=== PATIENT | female | born 1935 | race African-American/Black ===

== ENCOUNTER 2017-07-19 | Emergency (ER) | payer OTHER ==
[~2017-07-19] VITALS: Ht 175.3 cm; Wt 75.0 kg
[2017-07-19] MEDS ORDERED: ONDANSETRON 4MG ODT PO ONE (01:00)
[2017-07-19 01:01] VITALS: BP 147/77
== END 2017-07-19 01:16 | disposition home or self-care (01) ==
LOC: ER
DX: T50.905A Adverse effect of unspecified drugs, medicaments and biological substances, initial encounter (principal); Y92.9 Unspecified place or not applicable; S63.104A Unspecified dislocation of right thumb, initial encounter; E11.9 Type 2 diabetes mellitus without complications; I10 Essential (primary) hypertension; Z88.0 Allergy status to penicillin
CPT/HCPCS: 99283; Q0162

== ENCOUNTER 2019-10-21 16:06 | Emergency (ER) | payer OTHER ==
[~2019-10-21] VITALS: Ht 172.7 cm; Wt 74.0 kg
[2019-10-21 16:36] LABS: BASOPHILS % 0.7 % (0.0-2.0); EOSINOPHILS % 0.6 % (0.0-5.0); HEMOGLOBIN. 12.9 g/dL (12.0-16.0); LYMPHOCYTES % 21.2 % (20.0-50.0); MEAN CORPUSCULAR HEMOGLOBIN 29.4 pg (28.0-32.0); MEAN CORPUSCULAR VOLUME 88.9 fL (81.0-99.0); MEAN PLATELET VOLUME 9.1 fl (7.4-10.4); MONOCYTES % 9.7 % (2.0-8.0); NEUTROPHILS % 67.8 % (40.0-76.0); PLATELET 198 x1000/uL (130-400); RED BLOOD CELL COUNT 4.38 mill/uL (4.2-5.4); RED CELL DISTRIBUTION WIDTH 15.6 % (11.6-14.6)
[2019-10-21 16:37] LABS: CHLORIDE 102 mEq/L (98-107)
[2019-10-21 16:42] LABS: ETHANOL BLOOD < 10 mg/dL
[2019-10-21 16:45] LABS: LDL CHOLESTEROL 76 mg/dL (5-100)
[2019-10-21 16:46] LABS: CREATINE KINASE 171 IU/L (26-192)
[2019-10-21 16:47] LABS: INR 1.1; PROTHROMBIN TIME 11.2 sec (9.6-11.0)
[2019-10-21] MEDS ORDERED: POTASSIUM CHLORIDE INJ 40 MEQ in DEXT 5% WATER 250 ML IV NR (17:30)
[2019-10-21 18:21] LABS: CLARITY URINE CLEAR (CLEAR); COLOR URINE YELLOW (YELLOW); KETONES URINE NEGATIVE (NEGATIVE); LEUKOCYTE ESTERASE URINE NEGATIVE (NEGATIVE); NITRITE URINE NEGATIVE (NEGATIVE); OCCULT BLOOD URINE TRACE (NEGATIVE); PROTEIN URINE NEGATIVE (NEGATIVE); UROBILINOGEN URINE 0.2 E.U./dL (0.2-1.0)
[2019-10-21 18:31] LABS: *AMPHETAMINES SCREEN URINE NEGATIVE (NEGATIVE); *BARBITURATES SCREEN URINE NEGATIVE (NEGATIVE); *BENZODIAZEPINES SCREEN URINE NEGATIVE (NEGATIVE); *COCAINE SCREEN URINE NEGATIVE (NEGATIVE); METHADONE URINE SCREEN NEGATIVE (NEGATIVE)
[2019-10-21 18:32] LABS: CANNABINOID URINE SCREEN NEGATIVE (NEGATIVE); OPIATES URINE SCREEN NEGATIVE (NEGATIVE); PHENCYCLIDINE URINE SCREEN NEGATIVE (NEGATIVE)
[2019-10-21 20:13] VITALS: BP 162/95
== END 2019-10-21 21:26 | disposition short-term general hospital (02) ==
LOC: ER 16:06 → CANBEDREQ 22:02
DX: G93.41 Metabolic encephalopathy (principal); E11.9 Type 2 diabetes mellitus without complications; I11.0 Hypertensive heart disease with heart failure; I50.9 Heart failure, unspecified; R41.82 Altered mental status, unspecified
CPT/HCPCS: 36415; 70450; 70496; 71045; 80053; 80305; 80320; 81003; 82550; 82962; 83690; 83721; 83880; 84484; 85025; 85610; 93005; 96365; 96366; 99285; J3480; J7060; G0480

== ENCOUNTER 2020-01-01 13:51 | Emergency (ER) | payer OTHER ==
[~2020-01-01] VITALS: Ht 165.1 cm; Wt 65.0 kg
[2020-01-01 19:35] VITALS: BP 146/92
== END 2020-01-01 19:48 | disposition home or self-care (01) ==
LOC: ER 13:51
DX: M25.561 Pain in right knee (principal); I11.0 Hypertensive heart disease with heart failure; I50.9 Heart failure, unspecified; J45.909 Unspecified asthma, uncomplicated; E11.9 Type 2 diabetes mellitus without complications; Z88.0 Allergy status to penicillin
CPT/HCPCS: 71045; 73560; 99285

== ENCOUNTER 2021-10-14 20:03 | Inpatient (IN) | payer OTHER ==
[~2021-10-14] VITALS: Ht 175.3 cm; Wt 72.1 kg
[2021-10-14] MEDS ORDERED: LEVOFLOXACIN 750MG PREMIX 150 ML IV ONE (20:30)
[2021-10-14] MEDS ORDERED: SODIUM CHLORIDE 0.9% 1000ML BAG (SEPSIS BOLUS) IV ONE (20:30)
[2021-10-14] MEDS ORDERED: ONDANSETRON HCL 4MG/2ML INJ IV ONE (20:45)
[2021-10-14] MEDS ORDERED: NOREPINEPHRINE 8 MG in DEXT 5% WATER 242 ML IV STA (21:03)
[2021-10-14] MEDS ORDERED: NOREPINEPHRINE 8MG/250ML PMX 250 ML IV ONE ×2 (21:19→23:45)
[2021-10-14 21:27] LABS: BG BASE EXCESS -2.7 mmol/L (-2.0-2.0); BG CARBOXYHEMOGLOBIN 0.3 % (0.5-1.5); BG FRACTION INSPIRED OXYGEN 32; BG HCO3 ACT 18.2 mmol/L (22.0-26.0); BG METHEMOGLOBIN 0.2 % (0.0-1.5); BG OXYHEMOGLOBIN 96.5 % (94.0-97.0); BG PCO2 21.5 mmHg (35.0-45.0); BG PH 7.546 (7.350-7.450); BG PO2 100.6 mmHg (75.0-100.0); BG SAMPLE SITE RIGHT RADIAL; BG TOTAL HEMOGLOBIN 10.9 g/dL (12.0-18.0); BG VENT MODE NASAL CANNULA
[2021-10-14 21:36] LABS: CHLORIDE 97 mEq/L (98-107)
[2021-10-14 21:39] LABS: BASOPHILS % 0.2 % (0.0-2.0); EOSINOPHILS % 0.1 % (0.0-5.0); HEMATOCRIT. 39.9 % (36.0-48.0); HEMOGLOBIN. 12.5 g/dL (12.0-16.0); LYMPHOCYTES % 8.1 % (20.0-50.0); MEAN CORPUSCULAR VOLUME 82.7 fL (81.0-99.0); MEAN PLATELET VOLUME 9.7 fl (7.4-10.4); MONOCYTES % 5.1 % (2.0-8.0); NEUTROPHILS % 86.5 % (40.0-76.0); PLATELET 155 x1000/uL (130-400); RED BLOOD CELL COUNT 4.82 mill/uL (4.2-5.4); RED CELL DISTRIBUTION WIDTH 17.9 % (11.6-14.6)
[2021-10-14] MEDS ORDERED: DOCUSATE SODIUM 100MG CAPSULE PO PRN (22:30)
[2021-10-14] MEDS ORDERED: HYDROCODONE/ACETAMINOPHEN 5/325MG TABLET PO PRN (22:30)
[2021-10-14] MEDS ORDERED: NALOXONE HCL 0.4MG/ML VIAL IV PRN (22:30)
[2021-10-14] MEDS ORDERED: MORPHINE SULFATE 2 MG/ML CPJ (NOT FOR IM USE) IV PRN (22:30)
[2021-10-14] MEDS ORDERED: DEXT 5%/0.45% NACL 1000ML 1,000 ML IV SCH (22:30)
[2021-10-14] MEDS ORDERED: IPRATROPIUM/ALBUTEROL 0.5-3(2.5)MG/3ML NEB NEB PRN (22:30)
[2021-10-14] MEDS ORDERED: CLONIDINE 0.1MG TABLET PO PRN (22:30)
[2021-10-14] MEDS ORDERED: MAGNESIUM/ALUMINUM HYDROXIDE/SIMETHICONE 30ML UDC PO PRN (22:30)
[2021-10-14] MEDS ORDERED: GUAIFENESIN 200MG/10ML SUGAR FREE UDC PO PRN (22:30)
[2021-10-14] MEDS ORDERED: ACETAMINOPHEN 325MG TABLET PO PRN (22:30)
[2021-10-14] MEDS ORDERED: DIPHENHYDRAMINE 50MG/ML VIAL IV PRN (22:30)
[2021-10-14] MEDS ORDERED: NA PHOS,M-B/NA PHOS,DI-BA ENEMA 118ML PR PRN (22:30)
[2021-10-14] MEDS ORDERED: LEVOFLOXACIN 500MG PREMIX 100 ML IV NR (23:00)
[2021-10-14 23:01] LABS: INR 1.4; PARTIAL THROMBOPLASTIN TIME 27.2 sec (23.4-31.0); PROTHROMBIN TIME 14.3 sec (9.6-11.0)
[2021-10-14] MEDS ORDERED: VANCOMYCIN 1500MG in DEXTROSE 5% WATER 250ML IV NR (23:30)
[2021-10-15] VITALS (54 sets, daily range): BP systolic 68–154; BP diastolic 19–97
[2021-10-15 04:30] LABS: CLARITY URINE CLEAR (CLEAR); COLOR URINE DARK YELLOW (YELLOW); KETONES URINE TRACE (NEGATIVE); LEUKOCYTE ESTERASE URINE NEGATIVE (NEGATIVE); NITRITE URINE NEGATIVE (NEGATIVE); OCCULT BLOOD URINE NEGATIVE (NEGATIVE); PROTEIN URINE 1+ (NEGATIVE); SPECIFIC GRAVITY URINE 1.016 (1.005-1.030)
[2021-10-15 05:37] LABS: BASOPHILS % 0.2 % (0.0-2.0); HEMATOCRIT. 28.8 % (36.0-48.0); HEMOGLOBIN. 9.3 g/dL (12.0-16.0); LYMPHOCYTES % 7.5 % (20.0-50.0); MEAN CORPUSCULAR HEMOGLOBIN 26.7 pg (28.0-32.0); MEAN CORPUSCULAR VOLUME 82.7 fL (81.0-99.0); MEAN PLATELET VOLUME 9.8 fl (7.4-10.4); MONOCYTES % 4.5 % (2.0-8.0); NEUTROPHILS % 87.8 % (40.0-76.0); PLATELET 136 x1000/uL (130-400); RED BLOOD CELL COUNT 3.48 mill/uL (4.2-5.4); RED CELL DISTRIBUTION WIDTH 17.6 % (11.6-14.6)
[2021-10-15 05:40] LABS: CHLORIDE 102 mEq/L (98-107)
[2021-10-15] MEDS: KCL 20MEQ/100ML X 2 FOR TOTAL KCL 40MEQ/200ML IV SCH ×2 (07:08→12:09)
[2021-10-15] MEDS: BLOOD SUGAR DIAGNOSTIC STRIP TEST SCH ×4 (07:12→21:14)
[2021-10-15] MEDS: INSULIN LISPRO 100 UNITS/ML SUBCUT SCH ×5 (07:17→21:18)
[2021-10-15] MEDS ORDERED: SODIUM CHLORIDE 0.9% 1,000 ML IV ONE (09:30)
[2021-10-15] MEDS ORDERED: DIATR MEGLU/DIATRIZOATE SOLN 30ML PO SCH (09:45)
[2021-10-15 10:19] LABS: BG BASE EXCESS -9.4 mmol/L (-2.0-2.0); BG CARBOXYHEMOGLOBIN 0.3 % (0.5-1.5); BG DEOXYHEMOGLOBIN 2.8 % (0.0-5.0); BG HCO3 ACT 12.6 mmol/L (22.0-26.0); BG METHEMOGLOBIN 0.2 % (0.0-1.5); BG OXYGEN SATURATION 97.2 % (92.0-98.5); BG OXYHEMOGLOBIN 96.7 % (94.0-97.0); BG PCO2 18.5 mmHg (35.0-45.0); BG PH 7.451 (7.350-7.450); BG PO2 105.2 mmHg (75.0-100.0); BG SAMPLE SITE RIGHT RADIAL; BG TOTAL HEMOGLOBIN 10.7 g/dL (12.0-18.0); BG VENT MODE NASAL CANNULA
[2021-10-15] MEDS ORDERED: SODIUM BICARBONATE 8.4% 1 MEQ/ML 50ML SYR IV NR (10:27)
[2021-10-15] MEDS: DEXT 5%/0.45% NACL KCL 40MEQ/L 1,000 ML IV SCH ×2 (12:09→21:15)
[2021-10-15 13:04] LABS: BG BASE EXCESS -2.6 mmol/L (-2.0-2.0); BG CARBOXYHEMOGLOBIN 0.3 % (0.5-1.5); BG METHEMOGLOBIN 0.2 % (0.0-1.5); BG OXYHEMOGLOBIN 97.5 % (94.0-97.0); BG PCO2 20.4 mmHg (35.0-45.0); BG PH 7.564 (7.350-7.450); BG PO2 113.8 mmHg (75.0-100.0); BG SAMPLE SITE LEFT FEMORAL; BG TOTAL HEMOGLOBIN 10.7 g/dL (12.0-18.0); BG VENT MODE NASAL CANNULA
[2021-10-15] MEDS: PANTOPRAZOLE SODIUM 40 MG/VIAL IV SCH (13:05)
[2021-10-15 13:10] LABS: BASOPHILS % 0.1 % (0.0-2.0); HEMATOCRIT. 30.3 % (36.0-48.0); HEMOGLOBIN. 9.8 g/dL (12.0-16.0); LYMPHOCYTES % 7.5 % (20.0-50.0); MEAN CORPUSCULAR HEMOGLOBIN 26.3 pg (28.0-32.0); MEAN CORPUSCULAR VOLUME 81.2 fL (81.0-99.0); MEAN PLATELET VOLUME 9.3 fl (7.4-10.4); MONOCYTES % 3.9 % (2.0-8.0); NEUTROPHILS % 88.5 % (40.0-76.0); PLATELET 103 x1000/uL (130-400); RED BLOOD CELL COUNT 3.74 mill/uL (4.2-5.4); RED CELL DISTRIBUTION WIDTH 17.6 % (11.6-14.6)
[2021-10-15 13:15] LABS: CHLORIDE 103 mEq/L (98-107)
[2021-10-15] MEDS ORDERED: MAGNESIUM 2 G PREMIX 50 ML IV SCH (14:00)
[2021-10-15] MEDS ORDERED: KCL 20MEQ/100ML PREMIX 100 ML IV SCH ×2 (15:00→17:00)
[2021-10-15] MEDS ORDERED: KCL 20MEQ/100ML PREMIX 100 ML IV NR (20:00)
[2021-10-15] MEDS: NOREPINEPHRINE 8 MG in DEXT 5% WATER 242 ML IV PRN (20:04)
[2021-10-15] MEDS: VANCOMYCIN 1G PREMIX 200 ML IV SCH (20:11)
[2021-10-15 23:52] LABS: HEMATOCRIT 32.4 % (36.0-48.0); HEMOGLOBIN 10.3 g/dL (12.0-16.0)
[2021-10-15] MEDS: LEVOFLOXACIN 250MG PREMIX 50 ML IV SCH (23:59)
[2021-10-16] VITALS (101 sets, daily range): BP systolic 53–189; BP diastolic 18–147
[2021-10-16 05:59] LABS: CHLORIDE 105 mEq/L (98-107)
[2021-10-16 06:00] LABS: HEMATOCRIT. 27.9 % (36.0-48.0); HEMOGLOBIN. 9.2 g/dL (12.0-16.0); MEAN CORPUSCULAR HEMOGLOBIN 26.8 pg (28.0-32.0); MEAN CORPUSCULAR VOLUME 81.4 fL (81.0-99.0); MEAN PLATELET VOLUME 10.1 fl (7.4-10.4); PLATELET 110 x1000/uL (130-400); RED BLOOD CELL COUNT 3.42 mill/uL (4.2-5.4); RED CELL DISTRIBUTION WIDTH 17.7 % (11.6-14.6)
[2021-10-16 06:23] LABS: PHOSPHORUS 0.3 mg/dL (2.5-4.9)
[2021-10-16] MEDS: BLOOD SUGAR DIAGNOSTIC STRIP TEST SCH ×4 (06:50→21:00)
[2021-10-16] MEDS: DEXT 5%/0.45% NACL KCL 40MEQ/L 1,000 ML IV SCH (06:52)
[2021-10-16] MEDS: INSULIN LISPRO 100 UNITS/ML SUBCUT SCH ×4 (06:55→21:00)
[2021-10-16] MEDS: DEXT 5%/0.45% NACL 1000ML 1,000 ML IV SCH ×2 (08:01→23:30)
[2021-10-16] MEDS ORDERED: POTASSIUM PHOS,M-BASIC-D-BASIC 30 MMOL in DEXT 5% WATER 500 ML IV ONE (08:30)
[2021-10-16 09:29] LABS: NUCLEATED RED BLOOD CELLS 2 /100 WBC
[2021-10-16 09:30] LABS: PLATELET ESTIMATE SLIGHTLY DECREASED
[2021-10-16] MEDS: PANTOPRAZOLE SODIUM 40 MG/VIAL IV SCH (09:43)
[2021-10-16] MEDS: CITRIC ACID/SODIUM CITRATE SOLN 15ML UDC PO SCH ×3 (11:16→17:06)
[2021-10-16 14:20] LABS: TOTAL IRON BINDING CAPACITY 131 ug/dL (250-450)
[2021-10-16 14:47] LABS: FOLIC ACID (FOLATE) SERUM 1.7 ng/mL (>5.38)
[2021-10-16 17:38] LABS: HEMATOCRIT 23.3 % (36.0-48.0); HEMOGLOBIN 7.6 g/dL (12.0-16.0)
[2021-10-16 21:09] LABS: HEPATITIS B SURFACE ANTIGEN NEGATIVE
[2021-10-16] MEDS: DEXTROSE 50% WATER 50ML SYRINGE IV PRN (21:51)
[2021-10-16] MEDS: VANCOMYCIN 1G PREMIX 200 ML IV SCH (22:14)
[2021-10-16 23:47] LABS: HEMATOCRIT 24.8 % (36.0-48.0); HEMOGLOBIN 8.4 g/dL (12.0-16.0)
[2021-10-16] MEDS: LEVOFLOXACIN 250MG PREMIX 50 ML IV SCH (23:59)
[2021-10-17] VITALS (95 sets, daily range): BP systolic 65–175; BP diastolic 20–127
[2021-10-17] MEDS: DEXT 5%/0.45% NACL 1000ML 1,000 ML IV SCH ×3 (00:25→20:12)
[2021-10-17] MEDS: PANTOPRAZOLE SODIUM 40 MG/VIAL IV SCH ×3 (00:45→23:13)
[2021-10-17] MEDS: NOREPINEPHRINE 8 MG in DEXT 5% WATER 242 ML IV PRN (02:15)
[2021-10-17 04:32] LABS: HEMATOCRIT. 25.4 % (36.0-48.0); HEMOGLOBIN. 8.5 g/dL (12.0-16.0); MEAN CORPUSCULAR HEMOGLOBIN 26.5 pg (28.0-32.0); MEAN CORPUSCULAR VOLUME 78.9 fL (81.0-99.0); PLATELET 98 x1000/uL (130-400); RED BLOOD CELL COUNT 3.22 mill/uL (4.2-5.4); RED CELL DISTRIBUTION WIDTH 18.5 % (11.6-14.6)
[2021-10-17 04:37] LABS: CHLORIDE 107 mEq/L (98-107)
[2021-10-17 04:52] LABS: PHOSPHORUS 1.1 mg/dL (2.5-4.9)
[2021-10-17 05:31] LABS: PLATELET ESTIMATE DECREASED
[2021-10-17] MEDS: BLOOD SUGAR DIAGNOSTIC STRIP TEST SCH ×4 (06:05→21:16)
[2021-10-17] MEDS: INSULIN LISPRO 100 UNITS/ML SUBCUT SCH ×4 (06:06→21:36)
[2021-10-17] MEDS ORDERED: POTASSIUM PHOS,M-BASIC-D-BASIC 20 MMOL in DEXT 5% WATER 243.3333 ML IV NR (08:30)
[2021-10-17] MEDS ORDERED: MAGNESIUM 4 G PREMIX 100 ML IV NR (08:30)
[2021-10-17] MEDS: CITRIC ACID/SODIUM CITRATE SOLN 15ML UDC PO SCH ×3 (11:21→16:40)
[2021-10-17 13:21] LABS: HEMATOCRIT 26.2 % (36.0-48.0); HEMOGLOBIN 8.3 g/dL (12.0-16.0)
[2021-10-17] MEDS: PHENYLEPHRINE 100 MG in DEXT 5% WATER 240 ML IV PRN (16:41)
[2021-10-17] MEDS: LEVOFLOXACIN 250MG PREMIX 50 ML IV SCH (23:13)
[2021-10-18] VITALS (97 sets, daily range): BP systolic 74–173; BP diastolic 19–127
[2021-10-18 05:12] LABS: HEMATOCRIT. 23.4 % (36.0-48.0); HEMOGLOBIN. 7.7 g/dL (12.0-16.0); MEAN CORPUSCULAR HEMOGLOBIN 26.2 pg (28.0-32.0); MEAN CORPUSCULAR VOLUME 79.7 fL (81.0-99.0); MEAN PLATELET VOLUME 10.1 fl (7.4-10.4); PLATELET 73 x1000/uL (130-400); RED BLOOD CELL COUNT 2.93 mill/uL (4.2-5.4); RED CELL DISTRIBUTION WIDTH 18.1 % (11.6-14.6)
[2021-10-18 05:42] LABS: CHLORIDE 111 mEq/L (98-107)
[2021-10-18 05:56] LABS: PHOSPHORUS 1.8 mg/dL (2.5-4.9)
[2021-10-18] MEDS: INSULIN LISPRO 100 UNITS/ML SUBCUT SCH ×4 (06:05→21:00)
[2021-10-18] MEDS: BLOOD SUGAR DIAGNOSTIC STRIP TEST SCH ×4 (06:05→21:00)
[2021-10-18 07:50] LABS: BG BASE EXCESS -4.6 mmol/L (-2.0-2.0); BG CARBOXYHEMOGLOBIN 0.3 % (0.5-1.5); BG DEOXYHEMOGLOBIN 1.9 % (0.0-5.0); BG HCO3 ACT 16.8 mmol/L (22.0-26.0); BG METHEMOGLOBIN 0.3 % (0.0-1.5); BG OXYGEN SATURATION 98.1 % (92.0-98.5); BG OXYHEMOGLOBIN 97.5 % (94.0-97.0); BG PH 7.541 (7.350-7.450); BG PO2 140.8 mmHg (75.0-100.0); BG SAMPLE SITE RIGHT RADIAL; BG TOTAL HEMOGLOBIN 8.4 g/dL (12.0-18.0); BG VENT MODE NASAL CANNULA
[2021-10-18] MEDS ORDERED: POTASSIUM PHOS,M-BASIC-D-BASIC 20 MMOL in DEXT 5% WATER 243.3333 ML IV SCH (08:00)
[2021-10-18] MEDS: CITRIC ACID/SODIUM CITRATE SOLN 15ML UDC PO SCH (08:49)
[2021-10-18] MEDS: KCL 20MEQ/100ML PREMIX 100 ML IV SCH ×2 (08:49→10:19)
[2021-10-18] MEDS: FOLIC ACID 1MG TABLET PO SCH (08:50)
[2021-10-18] MEDS: DEXT 5%/0.45% NACL 1000ML 1,000 ML IV SCH (09:07)
[2021-10-18 11:10] LABS: PLATELET ESTIMATE DECREASED
[2021-10-18] MEDS: PANTOPRAZOLE SODIUM 40 MG/VIAL IV SCH (14:11)
[2021-10-18] MEDS: CITRIC ACID/SODIUM CITRATE SOLN 30ML UDC PO SCH ×2 (15:43→18:26)
[2021-10-18 16:17] LABS: PHOSPHORUS 2.6 mg/dL (2.5-4.9)
[2021-10-19] VITALS (111 sets, daily range): BP systolic 82–165; BP diastolic 28–145
[2021-10-19] MEDS: LEVOFLOXACIN 250MG PREMIX 50 ML IV SCH ×2 (00:06→23:15)
[2021-10-19] MEDS: PANTOPRAZOLE SODIUM 40 MG/VIAL IV SCH ×2 (00:14→11:56)
[2021-10-19] MEDS: DEXT 5%/0.45% NACL 1000ML 1,000 ML IV SCH ×2 (02:25→18:35)
[2021-10-19 05:51] LABS: HEMATOCRIT. 22.6 % (36.0-48.0); HEMOGLOBIN. 7.4 g/dL (12.0-16.0); MEAN CORPUSCULAR HEMOGLOBIN 26.3 pg (28.0-32.0); MEAN CORPUSCULAR VOLUME 79.7 fL (81.0-99.0); MEAN PLATELET VOLUME 10.1 fl (7.4-10.4); PLATELET 52 x1000/uL (130-400); RED BLOOD CELL COUNT 2.83 mill/uL (4.2-5.4); RED CELL DISTRIBUTION WIDTH 18.5 % (11.6-14.6)
[2021-10-19 06:03] LABS: CHLORIDE 105 mEq/L (98-107)
[2021-10-19] MEDS: BLOOD SUGAR DIAGNOSTIC STRIP TEST SCH ×4 (06:30→21:00)
[2021-10-19] MEDS: INSULIN LISPRO 100 UNITS/ML SUBCUT SCH ×4 (07:00→22:35)
[2021-10-19] MEDS: PHENYLEPHRINE 100 MG in DEXT 5% WATER 240 ML IV PRN (07:03)
[2021-10-19] MEDS ORDERED: POTASSIUM CHLORIDE 20MEQ/PACKET PO SCH (07:15)
[2021-10-19 07:48] LABS: PHOSPHORUS 1.8 mg/dL (2.5-4.9)
[2021-10-19] MEDS ORDERED: MAGNESIUM 2 G PREMIX 50 ML IV SCH (08:00)
[2021-10-19] MEDS: CITRIC ACID/SODIUM CITRATE SOLN 30ML UDC PO SCH ×3 (09:38→17:20)
[2021-10-19] MEDS: FOLIC ACID 1MG TABLET PO SCH (09:40)
[2021-10-19] MEDS ORDERED: POTASSIUM PHOS,M-BASIC-D-BASIC 10 MMOL in DEXT 5% WATER 246.6667 ML IV NR (10:00)
[2021-10-19 10:03] LABS: PLATELET ESTIMATE MARKEDLY DECREASED
[2021-10-19] MEDS ORDERED: LIDOCAINE HCL/PF 1% 10 MG/ML 5ML VIAL ONE (10:04)
[2021-10-19] MEDS ORDERED: VANCOMYCIN 750MG PREMIX 150 ML IV NR (12:00)
[2021-10-19] MEDS: ONDANSETRON HCL 4MG/2ML INJ IV PRN ×2 (12:07→18:35)
[2021-10-19] MEDS: THIAMINE HCL 100MG TABLET PO SCH (17:19)
[2021-10-19] MEDS: MULTIVITAMINS,THER W-MINERALS TABLET PO SCH (17:19)
[2021-10-19 19:34] LABS: HEMATOCRIT 33.6 % (36.0-48.0); HEMOGLOBIN 10.4 g/dL (12.0-16.0)
[2021-10-20] VITALS (55 sets, daily range): BP systolic 26–159; BP diastolic 16–113
[2021-10-20] MEDS ORDERED: METOPROLOL TARTRATE 5MG/5ML VIAL IV PRN
[2021-10-20] MEDS: PANTOPRAZOLE SODIUM 40 MG/VIAL IV SCH ×2 (00:25→12:09)
[2021-10-20 00:40] LABS: HEMATOCRIT 34.3 % (36.0-48.0); HEMOGLOBIN 11.4 g/dL (12.0-16.0)
[2021-10-20] MEDS ORDERED: PROPOFOL 10MG/ML 100ML 100 ML IV PRN ×2 (01:15→01:30)
[2021-10-20 01:58] LABS: BG BASE EXCESS -9.4 mmol/L (-2.0-2.0); BG CARBOXYHEMOGLOBIN 0.1 % (0.5-1.5); BG DEOXYHEMOGLOBIN 2.9 % (0.0-5.0); BG FRACTION INSPIRED OXYGEN 100; BG HCO3 ACT 16.1 mmol/L (22.0-26.0); BG METHEMOGLOBIN 0.1 % (0.0-1.5); BG OXYGEN SATURATION 97.1 % (92.0-98.5); BG OXYHEMOGLOBIN 96.9 % (94.0-97.0); BG PCO2 33.3 mmHg (35.0-45.0); BG PH 7.301 (7.350-7.450); BG PO2 114.9 mmHg (75.0-100.0); BG VENT MODE VENT - AC
[2021-10-20] MEDS: NOREPINEPHRINE 8 MG in DEXT 5% WATER 242 ML IV PRN (02:06)
[2021-10-20] MEDS ORDERED: SODIUM BICARBONATE 8.4% 1 MEQ/ML 50ML SYR IV NR ×3 (02:30→10:15)
[2021-10-20] MEDS: VASOPRESSIN 20 UNIT in SODIUM CHLORIDE 0.9% 99 ML IV PRN ×2 (04:38→13:36)
[2021-10-20] MEDS: PHENYLEPHRINE 100 MG in DEXT 5% WATER 240 ML IV PRN ×3 (04:39→19:38)
[2021-10-20] MEDS: NOREPINEPHRINE 32 MG in DEXT 5% WATER 218 ML IV PRN ×2 (04:40→17:59)
[2021-10-20 05:50] LABS: HEMATOCRIT. 34.7 % (36.0-48.0); HEMOGLOBIN. 11.5 g/dL (12.0-16.0); MEAN CORPUSCULAR HEMOGLOBIN 28.1 pg (28.0-32.0); MEAN CORPUSCULAR VOLUME 84.8 fL (81.0-99.0); MEAN PLATELET VOLUME 9.4 fl (7.4-10.4); RED BLOOD CELL COUNT 4.09 mill/uL (4.2-5.4); RED CELL DISTRIBUTION WIDTH 18.8 % (11.6-14.6)
[2021-10-20 06:10] LABS: CHLORIDE 101 mEq/L (98-107)
[2021-10-20 06:23] LABS: PLATELET 42 x1000/uL (130-400)
[2021-10-20 06:25] LABS: PHOSPHORUS 2.8 mg/dL (2.5-4.9)
[2021-10-20] MEDS: BLOOD SUGAR DIAGNOSTIC STRIP TEST SCH ×3 (06:41→16:36)
[2021-10-20] MEDS: INSULIN LISPRO 100 UNITS/ML SUBCUT SCH ×3 (06:42→16:36)
[2021-10-20] MEDS ORDERED: POTASSIUM CHLORIDE INJ 40 MEQ in DEXT 5% WATER 250 ML IV ONE (07:00)
[2021-10-20] MEDS ORDERED: SODIUM BICARBONATE 100 MEQ in DEXTROSE 5% WATER 1,000 ML IV SCH (08:00)
[2021-10-20] MEDS ORDERED: SUCCINYLCHOLINE CHLORIDE 200MG/10ML IV ONE (08:06)
[2021-10-20] MEDS ORDERED: ETOMIDATE 2MG/ML 10ML VIAL IV ONE (08:06)
[2021-10-20] MEDS: KCL 20MEQ/100ML X 2 FOR TOTAL KCL 40MEQ/200ML IV SCH ×2 (08:18→12:30)
[2021-10-20] MEDS ORDERED: DOPAMINE 800MG PREMIX (DOUBLE) 250 ML IV PRN (09:00)
[2021-10-20] MEDS: MULTIVITAMINS,THER W-MINERALS TABLET PO SCH (09:13)
[2021-10-20] MEDS: CITRIC ACID/SODIUM CITRATE SOLN 30ML UDC PO SCH ×3 (09:13→16:46)
[2021-10-20] MEDS: FOLIC ACID 1MG TABLET PO SCH (09:14)
[2021-10-20] MEDS: THIAMINE HCL 100MG TABLET PO SCH (09:14)
[2021-10-20 09:41] LABS: BG BASE EXCESS -12.9 mmol/L (-2.0-2.0); BG CARBOXYHEMOGLOBIN 0.2 % (0.5-1.5); BG FRACTION INSPIRED OXYGEN 100; BG HCO3 ACT 13.8 mmol/L (22.0-26.0); BG METHEMOGLOBIN 0.3 % (0.0-1.5); BG OXYGEN SATURATION 89.9 % (92.0-98.5); BG OXYHEMOGLOBIN 89.5 % (94.0-97.0); BG PCO2 34.6 mmHg (35.0-45.0); BG PH 7.218 (7.350-7.450); BG PO2 67.2 mmHg (75.0-100.0); BG SAMPLE SITE RIGHT BRACHIAL; BG TOTAL HEMOGLOBIN 12.3 g/dL (12.0-18.0); BG VENT MODE VENT - AC
[2021-10-20] MEDS ORDERED: MAGNESIUM 1 G PREMIX 100 ML IV NR (11:00)
[2021-10-20 12:15] LABS: HEMATOCRIT 31.8 % (36.0-48.0); HEMOGLOBIN 10.5 g/dL (12.0-16.0)
[2021-10-20] MEDS ORDERED: IPRATROPIUM BROMIDE (0.02%) 0.5MG/2.5ML NEB HHN SCH (12:45)
[2021-10-20 13:17] LABS: NUCLEATED RED BLOOD CELLS 8 /100 WBC
[2021-10-20 13:18] LABS: PLATELET ESTIMATE MARKEDLY DECREASED
[2021-10-20] MEDS ORDERED: METRONIDAZOLE 500 MG PREMIX 100 ML IV SCH (14:00)
[2021-10-20] MEDS ORDERED: EPINEPHRINE 0.1MG/ML (1:10,000) 10ML SYR ONE (14:04)
[2021-10-20] MEDS ORDERED: SODIUM BICARBONATE 8.4% 1 MEQ/ML 50ML SYR IV ONE (14:04)
[2021-10-20] MEDS ORDERED: LEVOFLOXACIN 500MG PREMIX 100 ML IV SCH (15:00)
[2021-10-20] MEDS: DEXTROSE 50% WATER 50ML SYRINGE IV PRN (16:36)
[2021-10-21] MEDS ORDERED: EPINEPHRINE 0.1MG/ML (1:10,000) 10ML SYR ONE (10:11)
[2021-10-21] MEDS ORDERED: DEXTROSE 50% WATER 50ML SYRINGE IV ONE (10:11)
[2021-10-21] MEDS ORDERED: CALCIUM CHLORIDE 1GM/10ML SYR IV ONE (10:11)
[2021-10-21] MEDS ORDERED: SODIUM BICARBONATE 8.4% 1 MEQ/ML 50ML SYR IV ONE (10:11)
== END 2021-10-20 21:00 | DRG 871 ==
LOC: ER 20:03 → MICUSO 22:15 → ENRESERV 23:05 → CANRESERV 23:05 → ENRESERV 10-15 07:17 → 5EST 10-15 07:20 → MICUSO 10-15 11:36 → MICUNO 10-15 22:55
PROVIDERS: ADMIT Internal Medicine; ATTEND Internal Medicine
PROC: B54BZZA Ultrasonography of Right Lower Extremity Veins, Guidance (ICD-10-PCS; 2021-10-14)
PROC: 06HY33Z Insertion of Infusion Device into Lower Vein, Percutaneous Approach (ICD-10-PCS; 2021-10-14)
PROC: 02HV33Z Insertion of Infusion Device into Superior Vena Cava, Percutaneous Approach (ICD-10-PCS; principal; 2021-10-19)
PROC: B548ZZA Ultrasonography of Superior Vena Cava, Guidance (ICD-10-PCS; 2021-10-19)
PROC: 4A10X4Z Monitoring of Central Nervous Electrical Activity, External Approach (ICD-10-PCS; 2021-10-19)
PROC: 30233N1 Transfusion of Nonautologous Red Blood Cells into Peripheral Vein, Percutaneous Approach (ICD-10-PCS; 2021-10-19)
PROC: 0BH17EZ Insertion of Endotracheal Airway into Trachea, Via Natural or Artificial Opening (ICD-10-PCS; 2021-10-20)
PROC: 5A1935Z Respiratory Ventilation, Less than 24 Consecutive Hours (ICD-10-PCS; 2021-10-20)
PROC: 5A12012 Performance of Cardiac Output, Single, Manual (ICD-10-PCS; 2021-10-20)
PROC: 5A2204Z Restoration of Cardiac Rhythm, Single (ICD-10-PCS; 2021-10-20)
DX: A41.9 Sepsis, unspecified organism (principal); E43 Unspecified severe protein-calorie malnutrition; N17.0 Acute kidney failure with tubular necrosis; R65.21 Severe sepsis with septic shock; G92.8 Other toxic encephalopathy; I63.9 Cerebral infarction, unspecified; J96.00 Acute respiratory failure, unspecified whether with hypoxia or hypercapnia; K57.31 Diverticulosis of large intestine without perforation or abscess with bleeding; I21.9 Acute myocardial infarction, unspecified; N39.0 Urinary tract infection, site not specified; D61.818 Other pancytopenia; I24.8 Other forms of acute ischemic heart disease; I50.42 Chronic combined systolic (congestive) and diastolic (congestive) heart failure; I46.9 Cardiac arrest, cause unspecified; E86.0 Dehydration; E87.6 Hypokalemia; E11.65 Type 2 diabetes mellitus with hyperglycemia; E53.8 Deficiency of other specified B group vitamins; E78.5 Hyperlipidemia, unspecified; E83.39 Other disorders of phosphorus metabolism; E83.42 Hypomagnesemia; I11.0 Hypertensive heart disease with heart failure; I25.10 Atherosclerotic heart disease of native coronary artery without angina pectoris; I27.81 Cor pulmonale (chronic); J44.9 Chronic obstructive pulmonary disease, unspecified; D50.0 Iron deficiency anemia secondary to blood loss (chronic); R62.7 Adult failure to thrive; I27.20 Pulmonary hypertension, unspecified; S80.922A Unspecified superficial injury of left lower leg, initial encounter; S80.921A Unspecified superficial injury of right lower leg, initial encounter; X58.XXXA Exposure to other specified factors, initial encounter; L89.150 Pressure ulcer of sacral region, unstageable; K76.0 Fatty (change of) liver, not elsewhere classified; L89.159 Pressure ulcer of sacral region, unspecified stage; M19.90 Unspecified osteoarthritis, unspecified site; Z20.822 Contact with and (suspected) exposure to COVID-19; Z88.0 Allergy status to penicillin; Y93.89 Activity, other specified; Y92.89 Other specified places as the place of occurrence of the external cause; Y99.8 Other external cause status; Z68.23 Body mass index [BMI] 23.0-23.9, adult
CPT/HCPCS: 31500; 36415; 36573; 36600; 70544; 70553; 71045; 71250; 74176; 76700; 80048; 80053; 80076; 80202; 81003; 82140; 82248; 82270; 82375; 82607; 82728; 82746; 82805; 82962; 83036; 83540; 83550; 83605; 83735; 84100; 84132; 84134; 84145; 84484; 85014; 85018; 85025; 85044; 86705; 86709; 86803; 86850; 86900; 86920; 87070; 87106; 87340; 87426; 92950; 93005; 93306; 93880; 93923; 94002; 94003; 94640; 95816; 99291; C1725; C9113; C9803; J0330; J1200; J1265; J1815; J1956; J2370; J2405; J2704; J3370; J3475; J3480; J3490; J7030; J7050; J7060; J7070; P9016; Q9963